=== PATIENT | female | born 1995 | race Hispanic/Latino ===

== ENCOUNTER 2021-04-16 03:02 | Emergency (ER) | payer MEDICAID, OTHER ==
[~2021-04-16] VITALS: Ht 152.4 cm; Wt 58.5 kg
[~2021-04-16 03:02] MED LIST: ACET1TAB12 PO; DOCU-116 PO; IBUP-2077 PO
[2021-04-16 03:39] LABS: APPEARANCE,URINE Clear (CLEAR); BILIRUBIN,URINE Negative (NEGATIVE); COLOR,URINE Yellow (YELLOW); GLUCOSE, URINE (UA) Negative (NEGATIVE); HCG,QUAL RESULT NEGATIVE (NEGATIVE); KETONES,URINE Negative (NEGATIVE); LEUKOCYTE ESTERASE ,URINE Moderate (NEGATIVE); NITRATE,URINE Negative (NEGATIVE); OCCULT BLOOD,URINE Negative (NEGATIVE); PH,URINE 6.5 (5.0-8.0); PROTEIN,URINE Trace mg/dL (NEGATIVE)
[2021-04-16 03:58] LABS: BACTERIA,URINE Few /HPF (None Seen); RBC,URINE 0-1 /HPF (0-1); SQUAMOUS EPITHELIAL CELL,UR 0-2 /HPF (0-2)
[2021-04-16 03:59] LABS: MUCUS,URINE Rare LPF (None Seen)
[2021-04-16 04:47] VITALS: BP 118/74
== END 2021-04-16 05:15 | disposition left against medical advice (07) ==
LOC: EDH 03:02
DX: O72.1 Other immediate postpartum hemorrhage (principal); Z53.21 Procedure and treatment not carried out due to patient leaving prior to being seen by health care provider
CPT/HCPCS: 81001; 81025; 87088; 87486; 87797

== ENCOUNTER 2022-11-19 13:00 | Inpatient (IN) | payer MEDICAID ==
[~2022-11-19] VITALS: Ht 152.4 cm; Wt 75.7 kg
[2022-11-19 15:34] LABS: BASOPHILS # (AUTO) 0.03 K/uL (0.00-0.20); BASOPHILS % (AUTO) 0.3 % (0.0-5.0); EOSINOPHILS % (AUTO) 0.9 % (0.0-8.0); HEMATOCRIT 33.7 % (36-48); IMMATURE GRANULOCYTE ABSOLUTE 0.19 K/uL (0-1); LYMPHOCYTES # (AUTO) 1.9 K/uL (1.0-4.8); LYMPHOCYTES % (AUTO) 17.9 % (21.0-51.0); MEAN CORPUSCULAR HEMOGLOBIN 27.6 pg (27.0-33.0); MEAN CORPUSCULAR HGB CONC 32.6 g/dL (32.0-36.0); MEAN CORPUSCULAR VOLUME 84.5 fL (79-99); MONOCYTES # (AUTO) 0.7 K/uL (0.1-1.0); MONOCYTES % (AUTO) 6.5 % (3.0-13.0); NEUTROPHILS # (AUTO) 7.6 K/uL (1.8-7.7); NEUTROPHILS % (AUTO) 72.6 % (40.0-77.0); PLATELET COUNT (AUTO) 138 K/uL (130-400); RED BLOOD CELL COUNT(AUTO) 3.99 MIL/uL (4.00-5.50); RED CELL DISTRIBUTION WIDTH 14.2 % (11.0-15.5); WHITE BLOOD COUNT (AUTO) 10.5 K/uL (4.8-10.8)
[2022-11-20] MEDS ORDERED: LACTATED RINGERS 1000ML 1,000 ML IV SCH (05:30)
[2022-11-20] MEDS ORDERED: CEFAZOLIN SODIUM 1 GM VIAL IVPB PRN (05:30)
[2022-11-20 05:59] LABS: APPEARANCE,URINE CLEAR (CLEAR); BILIRUBIN,URINE NEGATIVE (NEGATIVE); COLOR,URINE LIGHT-YELLOW (YELLOW); GLUCOSE, URINE (UA) NEGATIVE (NEGATIVE); KETONES,URINE NEGATIVE (NEGATIVE); LEUKOCYTE ESTERASE ,URINE NEGATIVE Leu/uL (NEGATIVE); NITRATE,URINE NEGATIVE (NEGATIVE); OCCULT BLOOD,URINE NEGATIVE (NEGATIVE); PH,URINE 6.5 (5.0-8.0); PROTEIN,URINE 20 mg/dL (NEGATIVE); UROBILINOGEN,URINE 0.2 mg/dL (0.2-1.0)
[2022-11-20 06:05] LABS: ADD UA MICROSCOPIC YES
[2022-11-20 06:06] LABS: BACTERIA,URINE RARE /HPF (None Seen); MUCUS,URINE RARE LPF (None Seen); SQUAMOUS EPITHELIAL CELL,UR RARE /HPF (0-2)
[2022-11-20 06:41] VITALS: BP 115/61
[2022-11-20] MEDS ORDERED: EPINEPHRINE PF 1MG (1:1,000) 1 MG/ML AMP ONE (06:44)
[2022-11-20] MEDS ORDERED: MORPHINE PF 100MG/10ML AMP IV ONE (06:44)
[2022-11-20] MEDS ORDERED: PREN-226 PO (06:45)
[2022-11-20] MEDS ORDERED: ONDANSETRON 4MG INJ ONE (06:48)
[2022-11-20] MEDS: CITRIC ACID/SODIUM CITRATE 30 ML UDCUP PO SCH (06:57)
[2022-11-20] MEDS ORDERED: CALDOLOR 800MG+NS 250ML 250 ML IV ONE (07:00)
[2022-11-20] MEDS ORDERED: OXYTOCIN 10 UNIT/1ML 10ML VIAL ONE (07:02)
[2022-11-20] MEDS ORDERED: CEFAZOLIN SODIUM 2 GM VIAL IVPB ONE (07:15)
[2022-11-20] MEDS ORDERED: GLYCOPYRROLATE 1 MG/5 ML SYRINGE ONE (07:26)
[2022-11-20] MEDS ORDERED: MIDAZOLAM HCL 1 MG/ML 2ML VIAL ONE (07:34)
[2022-11-20] MEDS ORDERED: EPHEDRINE SULFATE 50 MG/ML AMPULE ONE (07:50)
[2022-11-20] MEDS ORDERED: OXYTOCIN-LR 30 UNITS/500ML 500 ML IV PRN (08:00)
[2022-11-20] MEDS ORDERED: MEPERIDINE-PF 75 MG/ML SYG IM PRN (08:00)
[2022-11-20] MEDS ORDERED: PROMETHAZINE HCL 25 MG/ML 1ML AMPULE IM PRN (08:00)
[2022-11-20] MEDS ORDERED: 0.9%NACL 10ML VIAL IVP PRN (08:00)
[2022-11-20] MEDS ORDERED: DiphenhydrAMINE HCL 50 MG/ML VIAL ONE (10:31)
[2022-11-20 10:50] VITALS: BP 110/58; PULSE 81
[2022-11-20 12:01] VITALS: BP 98/47; PULSE 68; RESP 20
[2022-11-20] MEDS: DEXTROSE 5 %-0.45 % NACL 1,000 ML IV PRN (15:09)
[2022-11-20 15:15] VITALS: BP 118/46; PULSE 80; RESP 20
[2022-11-20] MEDS: CALDOLOR 800MG+NS 250ML 250 ML IV SCH (16:34)
[2022-11-20 19:26] VITALS: BP 98/53; PULSE 64; RESP 18
[2022-11-20 23:33] VITALS: BP 95/54; PULSE 67; RESP 20
[2022-11-21] MEDS: CALDOLOR 800MG+NS 250ML 250 ML IV SCH (00:10)
[2022-11-21] MEDS ORDERED: HYDROCODONE/ACETAMINOPHEN 5/325 MG TAB PO PRN (01:00)
[2022-11-21] MEDS ORDERED: LANOLIN 30GM OINTMENT TP PRN (01:00)
[2022-11-21] MEDS ORDERED: IBUPROFEN 600 MG TABLET PO PRN (01:00)
[2022-11-21] MEDS ORDERED: ACETAMINOPHEN 500 MG TABLET PO PRN (01:00)
[2022-11-21] MEDS ORDERED: BISACODYL 10 MG SUPP.RECT RC PRN (01:00)
[2022-11-21] MEDS ORDERED: ACETAMINOPHEN WITH CODEINE 1 TAB TAB PO PRN (01:00)
[2022-11-21] MEDS: DEXTROSE 5 %-0.45 % NACL 1,000 ML IV PRN (01:52)
[2022-11-21] MEDS: CITRIC ACID/SODIUM CITRATE 30 ML UDCUP PO SCH (01:53)
[2022-11-21 03:29] VITALS: BP 95/51; PULSE 75; RESP 18
[2022-11-21 06:53] VITALS: BP 99/62; PULSE 83; RESP 18
[2022-11-21 07:11] LABS: HEMATOCRIT 29.2 % (36-48); MEAN CORPUSCULAR HEMOGLOBIN 27.5 pg (27.0-33.0); MEAN CORPUSCULAR HGB CONC 32.5 g/dL (32.0-36.0); MEAN CORPUSCULAR VOLUME 84.4 fL (79-99); RED BLOOD CELL COUNT(AUTO) 3.46 MIL/uL (4.00-5.50); RED CELL DISTRIBUTION WIDTH 14.6 % (11.0-15.5); WHITE BLOOD COUNT (AUTO) 9.6 K/uL (4.8-10.8)
[2022-11-21] MEDS: IBUPROFEN 800 MG TAB PO SCH ×3 (08:13→23:31)
[2022-11-21] MEDS: DOCUSATE SODIUM 100 MG CAP PO SCH ×2 (08:14→21:22)
[2022-11-21] MEDS: SIMETHICONE 80 MG TAB.CHEW PO PRN (08:14)
[2022-11-21 11:15] VITALS: BP 103/67; PULSE 80; RESP 18
[2022-11-21 16:05] VITALS: BP 116/65; PULSE 65; RESP 20
[2022-11-21 19:25] VITALS: BP 113/71; PULSE 99; RESP 18
[2022-11-21 23:00] VITALS: BP 105/64; PULSE 88; RESP 18
[2022-11-22 03:26] VITALS: BP 119/73; PULSE 85; RESP 18
[2022-11-22 07:50] VITALS: BP 100/64; PULSE 74; RESP 20
[2022-11-22] MEDS: IBUPROFEN 800 MG TAB PO SCH (08:31)
[2022-11-22] MEDS: SIMETHICONE 80 MG TAB.CHEW PO PRN (08:31)
[2022-11-22] MEDS: DOCUSATE SODIUM 100 MG CAP PO SCH (08:31)
[2022-11-22 11:20] VITALS: BP 108/64; PULSE 73; RESP 20
== END 2022-11-22 11:45 | disposition home or self-care (01) | DRG 540 ==
LOC: LDH 11-20 05:05 → WSH 11-20 10:46
PROVIDERS: ADMIT Obstetrics & Gynecology; ATTEND Obstetrics & Gynecology
PROC: 10D00Z1 Extraction of Products of Conception, Low, Open Approach (ICD-10-PCS; principal; 2022-11-20 07:00)
DX: O34.211 Maternal care for low transverse scar from previous cesarean delivery (principal); O24.420 Gestational diabetes mellitus in childbirth, diet controlled; O69.81X0 Labor and delivery complicated by cord around neck, without compression, not applicable or unspecified; Z20.822 Contact with and (suspected) exposure to COVID-19; Z37.0 Single live birth; Z3A.39 39 weeks gestation of pregnancy
CPT/HCPCS: 36415; 59510; 81001; 82947; 85025; 85027; 86592; 86850; 86900; 86901; 87340; 87426; A4344; G0378; J0171; J0690; J1200; J1741; J2250; J2274; J2405; J2590; J3490; J7120; A4248; C1765